=== PATIENT | female | born 1930 | race Caucasian/White ===

== ENCOUNTER 2017-05-02 00:20 | Inpatient (IN) | payer MEDICARE, BC ==
[~2017-05-02] VITALS: Ht 172.7 cm; Wt 69.9 kg
[~2017-05-02 00:20] MED LIST: ALENDRONATE SOD70 MG PO; ARICEPT10 MG PO; BENAZEPRIL HCL20 MG PO; CELEXA40 MG PO; COREG25 MG PO; COUMADIN4 MG PO; DIGOXIN125 MCG PO; DIGOXIN250 MCG PO; FLAGYL250 MG PO; FUROSEMIDE40 MG PO; LEVAQUIN500 MG PO; LEVOTHYROXINE50 MCG PO; MAGNESIUM OXID400 MG PO; MICRO-K10 MEQ PO; NAMENDA10 MG PO; POTASSIUM CITR10 MEQ PO; WARFARIN SODIUM3 MG PO; ZOLPIDEM TARTRAT5 MG PO
[2017-05-02] MEDS ORDERED: DILTIAZEM HCL 5 MG/ML 5 ML VIAL IV STA (00:21)
[2017-05-02] MEDS ORDERED: ACETAMINOPHEN 1000 MG/100 ML IV STA (00:49)
[2017-05-02 00:54] LABS: BILIRUBIN,URINE NEGATIVE (NEGATIVE); KETONES,URINE NEGATIVE (NEGATIVE); LEUKOCYTE ESTERASE ,URINE 2+ (NEGATIVE); NITRITE,URINE NEGATIVE (NEGATIVE); URINE UROBILINOGEN 0.2 mg/dL (0.2 - 1)
[2017-05-02 00:58] LABS: BASOPHILS # (AUTO) 0.1 (0.0-0.1); BASOPHILS % 0.7 % (0.0-1.0); EOSINOPHILS # (AUTO) 0.4 (0.0-0.4); EOSINOPHILS % 2.9 % (0.0-6.0); HEMATOCRIT 47.5 % (34.2-44.1); HEMOGLOBIN 15.7 g/dL (12.0-16.0); LYMPHOCYTES # (AUTO) 2.9 (1.0-3.2); LYMPHOCYTES % 22.1 % (18.0-39.1); MEAN CORPUSCULAR HEMOGLOBIN 31.5 pg (28-32); MEAN CORPUSCULAR HGB CONC 33.1 g/dL (31-35); MEAN CORPUSCULAR VOLUME 95.4 fL (81-99); MONOCYTES # (AUTO) 1.3 (0.2-0.8); MONOCYTES % 10.1 % (4.4-11.3); NEUTROPHILS # (AUTO) 8.4 (2.1-6.9); NEUTROPHILS % 63.7 % (38.7-80.0); PLATELET COUNT 214 x10e3/uL (140-360); RED BLOOD COUNT 4.98 x10e6/uL (3.6-5.1); RED CELL DISTRIBUTION WIDTH 15.5 % (11.7-14.4)
[2017-05-02 01:02] LABS: INR 2.23; PARTIAL THROMBOPLASTIN TIME 37.4 seconds (23.8-35.5); PROTHROMBIN TIME 25.9 seconds (11.9-14.5)
[2017-05-02 01:04] LABS: CLARITY,URINE SL CLOUDY (CLEAR); COLOR,URINE YELLOW (YELLOW); PROTEIN,URINE DIPSTICK 2+ (NEGATIVE)
[2017-05-02] MEDS ORDERED: VITAMIN C1000 MG PO (01:05)
[2017-05-02] MEDS ORDERED: CITALOPRAM HBR20 MG PO (01:05)
[2017-05-02] MEDS ORDERED: MAGNESIUM OXID400 MG PO (01:05)
[2017-05-02] MEDS ORDERED: LEVOTHYROXINE50 MCG PO (01:05)
[2017-05-02] MEDS ORDERED: WARFARIN SODIUM2 MG PO ×2 (01:05)
[2017-05-02] MEDS ORDERED: MULTIVITAMINS1 EAC7 PO (01:05)
[2017-05-02] MEDS ORDERED: VITAMIN D32000 UNIT PO (01:05)
[2017-05-02] MEDS ORDERED: BENAZEPRIL HCL10 MG PO (01:05)
[2017-05-02 01:06] LABS: BACTERIA,URINE FEW /HPF; EPITHELIAL CELLS,URINE FEW /LPF; RBC,URINE 0-5 /HPF (0-5)
--- NOTE | 2017-05-02 01:07 | Diagnostic Imaging Report ---
EXAM: CHEST SINGLE (PORTABLE), AP 1 view DATE: 05/02/2017 12:21 AM Time stamp on exam: 0049 hours INDICATION: Shortness of breath, A. fib COMPARISON: PA and lateral view of the chest April 22, 2016 FINDINGS: LINES/TUBES: None LUNGS: Stable interstitial thickening. PLEURA: No effusions or pneumothorax. HEART AND MEDIASTINUM: Stable enlargement of the cardiac silhouette and central pulmonary arteries. BONES AND SOFT TISSUES: No acute findings. IMPRESSION: Stable appearance of the chest. Signed by: Dr. Viola Bailey M.D. on 05/02/2017 1:03 AM
[2017-05-02 01:11] LABS: ALANINE AMINOTRANSFERASE 19 IU/L (0-55); ALBUMIN 3.6 g/dL (3.5-5.0); ALBUMIN/GLOBULIN RATIO 0.9 (0.8-2.0); ALKALINE PHOSPHATASE 67 IU/L (40-150); ANION GAP 14.3 mmol/L (8-16); BLOOD UREA NITROGEN 23 mg/dL (7-26); BUN/CREATININE RATIO 28 (6-25); CALCIUM 9.2 mg/dL (8.4-10.2); CARBON DIOXIDE 28 mmol/L (22-29); CHLORIDE 103 mmol/L (98-107); CREATINE KINASE 42 IU/L (29-168); CREATININE, SERUM 0.83 mg/dL (0.57-1.11); EST GLOMERULAR FILTRATION RATE > 60 ML/MIN (60-); GLUCOSE 140 mg/dL (74-118); POTASSIUM 4.3 mmol/L (3.5-5.1); SODIUM 141 mmol/L (136-145)
[2017-05-02 01:23] LABS: B-TYPE NATRIURETIC PEPTIDE2 243.9 pg/mL (0-100)
[2017-05-02 01:31] LABS: THYROID STIMULATING HORMONE 15.587 uIU/mL (0.350-4.940); TROPONIN I 0.028 ng/mL (0-0.300)
[2017-05-02] MEDS ORDERED: IPRATROPIUM BROMIDE 0.02% 2.5 ML NEB NEB ONE (01:45)
[2017-05-02] MEDS ORDERED: DIGOXIN INJ 0.25 MG/ML 2 ML AMP IV ONE (01:45)
[2017-05-02] MEDS ORDERED: LEVALBUTEROL HCL SOLN NEBU 0.63 MG/3 ML NEB INH ONE (01:45)
[2017-05-02] MEDS: CEFTRIAXONE SOD 1 GM VIAL IV SCH ×2 (02:20→14:30)
[2017-05-02] MEDS: DOXYCYCLINE 100MG/NS 100ML 100 ML IV SCH ×2 (05:19→16:55)
[2017-05-02] MEDS: METHYLPREDNISOLONE SOD SUCC 125 MG/2ML VIAL IV SCH ×3 (06:25→22:00)
[2017-05-02 07:06] LABS: CREATINE KINASE MB 2.4 ng/mL (0.00-5.00); TROPONIN I 0.023 ng/mL (0-0.300)
[2017-05-02 08:00] VITALS: BP 166/106
[2017-05-02] MEDS ORDERED: NORCO 7.5-3251 EACH PO (10:28)
[2017-05-02 12:00] VITALS: BP 190/93
[2017-05-02] MEDS ORDERED: HYDROCODONE/APAP 7.5MG-325MG 1 EA TAB PO PRN (12:45)
[2017-05-02] MEDS: BENAZEPRIL HCL 10 MG TAB PO SCH (14:30)
[2017-05-02] MEDS: LEVALBUTEROL HCL SOLN NEBU 0.63 MG/3 ML NEB INH PRN (15:59)
[2017-05-02 16:00] VITALS: BP 197/111
[2017-05-02] MEDS: IPRATROPIUM BROMIDE 0.02% 2.5 ML NEB NEB PRN (16:00)
[2017-05-02] MEDS: MEMANTINE 10 MG TAB PO SCH (16:56)
[2017-05-02] MEDS: POTASSIUM CITRATE 10 MEQ TAB PO SCH (16:57)
[2017-05-02] MEDS ORDERED: WARFARIN SOD 3 MG TAB PO SCH (17:00)
[2017-05-02 17:07] LABS: CREATINE KINASE MB 3.2 ng/mL (0.00-5.00); TROPONIN I 0.019 ng/mL (0-0.300)
[2017-05-02] MEDS: CARVEDILOL 12.5 MG TAB PO SCH (17:55)
[2017-05-02 20:00] VITALS: BP 167/80
[2017-05-02] MEDS: ZOLPIDEM TARTRATE 5 MG TAB PO SCH (21:04)
[2017-05-02] MEDS: DONEPEZIL HCL 5 MG TAB PO SCH (21:05)
[2017-05-03] VITALS (23 sets, daily range): BP systolic 91–197; BP diastolic 50–111
[2017-05-03] MEDS: CEFTRIAXONE SOD 1 GM VIAL IV SCH ×2 (02:00→14:44)
[2017-05-03] MEDS: LEVALBUTEROL HCL SOLN NEBU 0.63 MG/3 ML NEB INH PRN (04:00)
[2017-05-03] MEDS: IPRATROPIUM BROMIDE 0.02% 2.5 ML NEB NEB PRN (04:00)
[2017-05-03] MEDS: DOXYCYCLINE 100MG/NS 100ML 100 ML IV SCH (04:42)
[2017-05-03] MEDS: METHYLPREDNISOLONE SOD SUCC 125 MG/2ML VIAL IV SCH ×3 (07:00→22:11)
[2017-05-03] MEDS: LEVOTHYROXINE SODIUM 88 MCG TAB PO SCH (07:00)
[2017-05-03 07:33] LABS: BASOPHILS % 0.1 % (0.0-1.0); HEMATOCRIT 46.6 % (34.2-44.1); LYMPHOCYTES # (AUTO) 0.8 (1.0-3.2); LYMPHOCYTES % 7.7 % (18.0-39.1); MEAN CORPUSCULAR HGB CONC 32.2 g/dL (31-35); MEAN CORPUSCULAR VOLUME 96.3 fL (81-99); MONOCYTES # (AUTO) 0.8 (0.2-0.8); MONOCYTES % 7.2 % (4.4-11.3); NEUTROPHILS # (AUTO) 8.8 (2.1-6.9); NEUTROPHILS % 84.4 % (38.7-80.0); PLATELET COUNT 185 x10e3/uL (140-360); RED BLOOD COUNT 4.84 x10e6/uL (3.6-5.1); RED CELL DISTRIBUTION WIDTH 14.9 % (11.7-14.4)
[2017-05-03 08:57] LABS: ANION GAP 15.3 mmol/L (8-16); BLOOD UREA NITROGEN 19 mg/dL (7-26); BUN/CREATININE RATIO 26 (6-25); CALCIUM 9.2 mg/dL (8.4-10.2); CARBON DIOXIDE 31 mmol/L (22-29); CHLORIDE 102 mmol/L (98-107); CREATININE, SERUM 0.72 mg/dL (0.57-1.11); EST GLOMERULAR FILTRATION RATE > 60 ML/MIN (60-); GLUCOSE 134 mg/dL (74-118); POTASSIUM 4.3 mmol/L (3.5-5.1); SODIUM 144 mmol/L (136-145)
[2017-05-03] MEDS ORDERED: WARFARIN SOD 2 MG TAB PO SCH ×2 (09:00→17:00)
[2017-05-03] MEDS: CARVEDILOL 12.5 MG TAB PO SCH ×2 (09:55→16:30)
[2017-05-03] MEDS: DIGOXIN 0.125 MG TAB PO SCH (09:55)
[2017-05-03] MEDS: CITALOPRAM HYDROBROMIDE 20 MG TAB PO SCH (09:55)
[2017-05-03] MEDS: FUROSEMIDE 40 MG TAB PO SCH (09:55)
[2017-05-03] MEDS: MAGNESIUM OXIDE 400 MG TAB PO SCH (09:56)
[2017-05-03] MEDS: NICOTINE 7 MG PATCH TOP SCH (09:56)
[2017-05-03] MEDS: MEMANTINE 10 MG TAB PO SCH ×2 (09:56→17:00)
[2017-05-03] MEDS: BENAZEPRIL HCL 10 MG TAB PO SCH (09:56)
[2017-05-03] MEDS: POTASSIUM CITRATE 10 MEQ TAB PO SCH ×2 (09:56→17:00)
[2017-05-03] MEDS: ASCORBIC ACID 500 MG TAB PO SCH (09:56)
[2017-05-03] MEDS: MULTIVITAMINS/MINERALS TAB PO SCH (09:56)
[2017-05-03] MEDS ORDERED: ETOMIDATE 40 MG/ 20ML VIAL IV ONE (11:21)
[2017-05-03] MEDS ORDERED: SUCCINYLCHOLINE CHLORIDE 20 MG/ML 10ML VIAL ONE (11:21)
[2017-05-03] MEDS: AZITHROMYCIN 500MG/NS 250 ML 250 ML IV SCH (16:30)
[2017-05-03 16:40] LABS: ABG HCO3 39 mmol/L (23-28); ABG PCO2 80 mmHg (41-51); ABG PO2 127 mmHg (80-105)
--- NOTE | 2017-05-03 17:06 | Consultation ---
DATE OF CONSULTATION: May 02, 2017 REASON FOR CONSULTATION: Atrial fibrillation. HISTORY OF PRESENT ILLNESS: Ms. Huff is an 86-year-old lady with past medical history of hypertension, hypercholesterolemia, chronic atrial fibrillation on anticoagulation therapy, dementia, major depressive disorder who is a very poor historian and lives with her son who helps care for her. The patient has also stigmata of end-stage COPD and reports still actively smoking, just under a pack per daily for over 60 years, probably close to 120-150 pack year smoking history. She utilizes home nebs whenever she gets in trouble, which is fairly frequently. She is a frequent flyer with multiple hospitalizations with respiratory distress throughout this entire [facility] corridor. She came in because she at home was unable to catch her breath and had taken some home nebs, which did not relieve her symptoms. Upon arrival in the emergency room, she was noted to be toxic and in moderate respiratory distress, with noteworthy EKG showing atrial fibrillation with rapid ventricular response which responded to 10 mg of intravenous diltiazem therapy. I spoke to the patient today and she is not clear why she is still here. She says that she feels more or less back to her baseline. In terms of her irregular heart beating, she cannot provide much history towards that, outside of that she has been told she has had irregularities in her heart beating, but denies any subjective palpitations, dizziness, syncope or near syncope. Currently, denies any chest pain or discomfort. She just reports shortness of breath that is occurring all the time. PAST MEDICAL HISTORY: 1. Hypertension. 2. Atrial fibrillation, chronic. 3. Hypothyroidism. 4. Dementia. 5. Major depressive disorder. 6. Questionable history of CHF. 7. 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 8. Tobacco dependence. PAST SURGICAL HISTORY: Reports only appendectomy in her youth. FAMILY HISTORY: Mother and father around the 70s to 80s range. Denies them having any issues with their hearts and denies any family history of coronary artery disease. SOCIAL HISTORY: She is just under a [id number]-rpx smoker currently, but again endorses about 120 lyts-ekkp-rsecvrh history if not more. Denies any alcohol or illicit drug use. ALLERGIES: NO KNOWN DRUG ALLERGIES. HOME MEDICATIONS: According to the chart review, she takes vitamin C tablet daily, Benazepril 10 mg daily. Coreg 12.5 mg b.i.d. Digoxin 0.125 mg daily. Vitamin D tablet daily. Citalopram 20 mg daily. Aricept 10 mg daily. Lasix 40 mg daily. Clarkia p.r.n. Synthroid 75 mcg daily. Namenda 10 mg b.i.d. Multivitamins one tablet daily. Coumadin 4 mg alternating with 6 mg every other day. Ambien p.r.n. Potassium 10 mEq daily. REVIEW OF SYSTEMS: GENERAL: Denies any fevers, chills or any weight changes. HEENT: No visual complaints, sore throat, stuffy nose. RESPIRATORY: Severe exertional dyspnea with minimal activity and dyspnea at rest, which is chronic for her as chronic nonproductive cough, sometimes productive of white sputum. CARDIOVASCULAR: Denies any chest pain. Denies any subjective palpitations despite atrial fibrillation and denies any syncope, near syncope or dizziness. GI: Denies any abdominal pain, has early satiety. No orthopnea, no bright red blood per rectum, melena or hematemesis. : Denies any dysuria or changes in urinary frequency, despite having elevated white count in urine. SKIN: No breakdowns. NEUROLOGIC: No syncope, history of TIA or stroke or focal weakness. Remainder of the review of systems is negative otherwise mentioned. PHYSICAL EXAMINATION VITAL SIGNS: Height of 68 inches, weight of 160 pounds, BMI 24.4, temperature 97.4, pulse of 82, respiratory rate 24, O2 sat 96% on 3 liters nasal cannula. Blood pressure 166/106. GENERAL: This is a very chronically ill-appearing lady who appears older than her stated age who appears to have chronic respiratory failure. HEENT: Pupils are equal, round and reactive to light. Extraocular movements are intact. Oropharynx is clear. NECK: No elevation of jugular venous pulsation or bilateral carotid bruits. CARDIOVASCULAR: Irregularly irregular rate and rhythm. Normal S1 and S2, soft 2/6 systolic murmur in the left lower sternal border. LUNGS: Show very poor air flow throughout the lung villarreal. Scattered wheezes and crackles and rhonchi. ABDOMEN: Soft and nontender, nondistended with normoactive bowel sounds. BACK: No costovertebral angle tenderness. EXTREMITIES: Warm with 1+ femoral pulses, absent pedal pulses. Trace edema. NEUROLOGIC: She moves all 4 extremities, elevated with poor effort and is difficult to ascertain. She has a tremor and exhibits memory difficulty. LABORATORY DATA: White count 13.2, hemoglobin 15.7, hematocrit 47.5, platelets 214,000. Sodium 141, potassium 4.3, chloride 103, bicarb 28, BUN 23, creatinine 0.83, glucose 140, calcium 9.2, AST 31, ALT 19, alkaline phosphatase 67, total protein 7.4, albumin of 3.6, TSH 15.6, BNP 244, troponin went from 0.028 to 0.023. INR 2.23. Urinalysis shows 11-20 white cells. Digoxin level is 0.85. Chest x-ray reveals enlargement of the cardiac silhouette and central pulmonary arteries and interstitial thickening. EKG reveals atrial fibrillation with rapid ventricular response, delayed R to S wave transition and nonspecific ST-T wave changes. DIAGNOSES 1. Wcwha-uk-vvckuxy hypoxic respiratory failure. 2. Likely chronic obstructive pulmonary disease exacerbation. 3. Hypothyroidism, uncontrolled. 4. Atrial fibrillation with rapid ventricular response, likely exacerbated secondary to pulmonary issues. 5. Cognitive impairment. 6. Hypertension. 7. Chronic obstructive pulmonary disease, active smoker. PLAN/RECOMMENDATIONS: 1. From a cardiovascular standpoint, will continue her home antihypertensive therapy. 2. Will continue her digoxin therapy and beta eden therapy for rate control. 3. Coumadin therapy for systemic anticoagulation. 4. Dosing increase of her Synthroid has been done by primary team. 5. Antibiotic therapy to help cover for infection in her lungs. 6. Overall, the patient is chronically ill. 7. Will look at her echo to look at her left ventricular function. 8. The patient definitely has likely coronary artery disease given her age and risk factors. However, at the present time she is ruled out for myocardial infarction with serial enzymes. Job#: [id number]
[2017-05-03] MEDS ORDERED: PROPOFOL IV EMULSION 10MG/ML 100 ML ONE (17:15)
[2017-05-03] MEDS ORDERED: DILTIAZEM HCL 100 ML IV SCH (17:45)
[2017-05-03] MEDS: FENTANYL CITRATE INJ 2,000 MCG in SODIUM CHLORIDE 0.9% 250ML 210 ML IV SCH (17:45)
[2017-05-03] MEDS ORDERED: SODIUM CHLORIDE 0.9% 250ML 500 ML ONE (17:59)
[2017-05-03] MEDS ORDERED: LORAZEPAM INJ 2 MG/ML VIAL IV SCH (19:00)
[2017-05-03] MEDS: LORAZEPAM INJ 2 MG/ML VIAL IV PRN (19:30)
--- NOTE | 2017-05-03 19:47 | Diagnostic Imaging Report ---
CHEST SINGLE (PORTABLE), 05/03/2017 5:38 PM Technique: CHEST SINGLE (PORTABLE) Comparison: 05/02/2017 Clinical history: ET tube placement Findings: See Impression Impression: 1. Lines/Tubes: ET tube about 4 cm above the maria esther. 2. Otherwise stable chest with mildly enlarged cardiac silhouette and interstitial thickening, possibly edema. Signed by: Dr Dinora Schaffer MD on 05/03/2017 7:44 PM
[2017-05-03] MEDS: ZOLPIDEM TARTRATE 5 MG TAB PO SCH (20:40)
[2017-05-03] MEDS: DONEPEZIL HCL 5 MG TAB PO SCH (20:40)
[2017-05-03 22:45] LABS: ABG HCO3 37 mmol/L (23-28); ABG PCO2 61 mmHg (41-51); ABG PO2 146 mmHg (80-105)
[2017-05-04] VITALS (39 sets, daily range): BP systolic 94–156; BP diastolic 51–118
[2017-05-04] MEDS: LORAZEPAM INJ 2 MG/ML VIAL IV PRN ×2 (00:50→05:35)
[2017-05-04] MEDS: CEFTRIAXONE SOD 1 GM VIAL IV SCH ×2 (02:15→14:00)
[2017-05-04] MEDS: METHYLPREDNISOLONE SOD SUCC 125 MG/2ML VIAL IV SCH (05:34)
[2017-05-04] MEDS: LEVOTHYROXINE SODIUM 88 MCG TAB PO SCH (05:35)
[2017-05-04 06:51] LABS: BASOPHILS % 0.1 % (0.0-1.0); HEMATOCRIT 45.6 % (34.2-44.1); HEMOGLOBIN 14.6 g/dL (12.0-16.0); LYMPHOCYTES # (AUTO) 0.9 (1.0-3.2); LYMPHOCYTES % 9.5 % (18.0-39.1); MEAN CORPUSCULAR HEMOGLOBIN 30.9 pg (28-32); MEAN CORPUSCULAR VOLUME 96.6 fL (81-99); MONOCYTES # (AUTO) 0.5 (0.2-0.8); MONOCYTES % 5.6 % (4.4-11.3); NEUTROPHILS # (AUTO) 8.2 (2.1-6.9); NEUTROPHILS % 84.4 % (38.7-80.0); PLATELET COUNT 170 x10e3/uL (140-360); RED BLOOD COUNT 4.72 x10e6/uL (3.6-5.1)
[2017-05-04] MEDS: FENTANYL CITRATE INJ 2,000 MCG in SODIUM CHLORIDE 0.9% 250ML 210 ML IV SCH (06:53)
[2017-05-04 07:14] LABS: INR 3.28; PROTHROMBIN TIME 35.2 seconds (11.9-14.5)
--- NOTE | 2017-05-04 07:20 | Consultation ---
DATE OF CONSULTATION: June 03, 2017 PULMONARY/CRITICAL CARE CONSULTATION HISTORY OF PRESENT ILLNESS: The patient is an 86-year-old woman. She has a known history of COPD, as well as cardiac problems. She required hospitalization last April for rapid atrial fibrillation, congestive heart failure and urosepsis. She subsequently required a stay at the [facility]. The patient now returns to the ER complaining of worsening dyspnea. She was noted to have a fast heart rate with rapid atrial fibrillation. She received some digoxin intravenously, as well as diltiazem. She still complains of uneasiness and tachycardia. She also reports congestion in her chest, as well as a nonproductive cough. She does not report any fevers. PAST SURGICAL HISTORY 1. Status post appendectomy. 2. Status post cataract surgery. PAST MEDICAL HISTORY 1. Atrial fibrillation and systolic congestive heart failure. 2. COPD. 3. Hypertension. SOCIAL HISTORY: The patient is not an active smoker. She is not a drinker. She lives in [place]. Dr. Devante Welch is her regular physician. FAMILY HISTORY: Noncontributory. REVIEW OF SYSTEMS: The patient is afebrile. The patient has tachycardia. She complains of some chest congestion and difficulty breathing. She reports palpitations. She does not complain of chest pain. She did not complain of nausea or vomiting. She has no abdominal pain. She does note some leg edema. She does not complain of any focal neurological complaints. PHYSICAL EXAMINATION VITAL SIGNS: The patient is afebrile. Her heart rate is 150-160. Her blood pressure is fluctuating about 130-140/80. She is saturating 98% on 3 L. HEENT: Shows no facial swelling or erythema. Nasal mucosa is normal. The oropharynx is normal. LYMPHATIC: Shows no submandibular, cervical or supraclavicular adenopathy. NECK: Shows no JVD or thyromegaly. CARDIAC: Reveals a rapid irregularly irregular rhythm. LUNGS: There is rhonchi and congestion bilaterally in both lung villarreal. ABDOMEN: Soft and nontender. There is no rebound or guarding. EXTREMITIES: Shows 1-2+ leg edema bilaterally. There is no calf tenderness. There is no cyanosis or clubbing. SKIN: Shows no rashes. NEUROLOGIC: Shows no focal abnormalities. LABORATORY DATA: The BUN to creatinine ratio is normal. The other electrolytes are within normal limits. The BNP is 243. TSH is 15.59. The white blood cell count is 10.4 and hemoglobin is 15. Platelet count is 185,000. RADIOGRAPHIC DATA: Chest x-ray shows cardiomegaly, but no active disease. EKG from the ER shows rapid atrial fibrillation. IMPRESSION 1. Atrial fibrillation with rapid ventricular response. 2. Agqyv-kn-zwgtwge systolic congestive heart failure. 3. Chronic obstructive pulmonary disease with acute exacerbation. 4. Hypothyroidism. PLAN 1. The patient will have a stat EKG now. We will discuss the case with cardiology to see what measures can be done to control her rapid ventricular rate. 2. Patient will require some diuretics. 3. Continue Solu-Medrol. 4. Continue long-acting anticholinergic medicines, such as Spiriva. Any acute nebulizers should be done with Xopenex to avoid any further tachycardia. 5. Sputum for Gram stain and C and S along with antibiotics for community-acquired infection. 6. Solute Medrol 1 mg per kg twice daily. Discussed the case with Dr. Man. Depending on the recommendations from cardiology, may require transfer to the ICU. I also discussed the case with the patient. Dr. Agusto Gao will assume care tomorrow. Job#: [id number] KEO
[2017-05-04 07:24] LABS: ALANINE AMINOTRANSFERASE 43 IU/L (0-55); ALBUMIN 3.1 g/dL (3.5-5.0); ALKALINE PHOSPHATASE 52 IU/L (40-150); ANION GAP 11.5 mmol/L (8-16); BLOOD UREA NITROGEN 29 mg/dL (7-26); BUN/CREATININE RATIO 36 (6-25); CARBON DIOXIDE 34 mmol/L (22-29); CHLORIDE 103 mmol/L (98-107); EST GLOMERULAR FILTRATION RATE > 60 ML/MIN (60-); GLUCOSE 115 mg/dL (74-118); POTASSIUM 4.5 mmol/L (3.5-5.1); SODIUM 144 mmol/L (136-145)
[2017-05-04] MEDS: BENAZEPRIL HCL 10 MG TAB PO SCH (09:00)
[2017-05-04] MEDS: POTASSIUM CITRATE 10 MEQ TAB PO SCH ×2 (09:00→17:00)
[2017-05-04] MEDS: CARVEDILOL 12.5 MG TAB PO SCH ×2 (09:42→19:38)
[2017-05-04] MEDS: CITALOPRAM HYDROBROMIDE 20 MG TAB PO SCH (09:43)
[2017-05-04] MEDS: FUROSEMIDE 40 MG TAB PO SCH (09:43)
[2017-05-04] MEDS: DIGOXIN 0.125 MG TAB PO SCH (09:43)
[2017-05-04] MEDS: MULTIVITAMINS/MINERALS TAB PO SCH (09:44)
[2017-05-04] MEDS: ASCORBIC ACID 500 MG TAB PO SCH (09:44)
[2017-05-04] MEDS: MAGNESIUM OXIDE 400 MG TAB PO SCH (09:44)
[2017-05-04] MEDS: MEMANTINE 10 MG TAB PO SCH ×2 (09:44→19:38)
[2017-05-04] MEDS: NICOTINE 7 MG PATCH TOP SCH (09:44)
[2017-05-04] MEDS: CHOLECALCIFEROL 1,000 UNIT TAB PO SCH (09:44)
--- NOTE | 2017-05-04 10:41 | Diagnostic Imaging Report ---
PROCEDURE: A single AP view of the chest. COMPARISON: Portable chest 05/03/2017. INDICATIONS: CHF, VENTILATION FINDINGS: Lines/tubes: Endotracheal catheter is present with the tip projecting over the expected region of the trachea, positioned 5 cm from the maria esther. Enteric feeding catheter with tip projecting over the expected region of the gastric body. Lungs: The lungs are well inflated and clear. There is no evidence of pneumonia or pulmonary edema. Bibasilar atelectasis. Pleura: There is no pleural effusion or pneumothorax. Heart and mediastinum: The heart and the mediastinum are unremarkable. Atherosclerotic calcifications. Bones: No acute bony abnormality. Degenerative changes of the thoracic spine. IMPRESSION: No acute radiographic abnormality. Dictated by: Angel Wagoner M.D. on 05/04/2017 at 10:49 Electronically approved by: Angel Wagoner M.D. on 05/04/2017 at 10:49
[2017-05-04] MEDS ORDERED: PROPOFOL IV EMULSION 10MG/ML 100 ML IV PRN (15:15)
--- NOTE | 2017-05-04 15:54 | Progress Note ---
DATE: May 04, 2017 PULMONARY CRITICAL CARE PROGRESS NOTE SUBJECTIVE: Ms. Huff was seen and examined at bedside. She continues to have ventilator dependence. She is intubated orally. Ventilation at 7 L per minute. Silva is in place with some urine output. On fentanyl drip at 75 mcg per hour. Good news is her chest x-ray remained clear today. Blood cultures no growth to date times 48 hours. REVIEW OF SYSTEMS: Cannot get as she is intubated. OBJECTIVE VITALS: Afebrile. Vital signs noted per electronic record. GENERAL: No acute distress. Alert and calm. HEENT: Normocephalic and atraumatic. NECK: Supple. Throat midline. LUNGS: Bilateral air entry. There is wheezes that are heard. There is a few crackles. CARDIOVASCULAR: S1 and S2. No murmurs, rubs or gallops. ABDOMEN: Soft and nontender. EXTREMITIES: No clubbing. No cyanosis. There is only trace edema. INTEGUMENT: No rash or purpura. LABS: Potassium 4.5, bicarbonate 34, BUN 29, creatinine 0.8. White count 10, hematocrit 46. INR was 3.28. IMPRESSION AND PLAN 1. Acute respiratory failure, intubated. 2. Atrial fibrillation with rapid rate. 3. Chronic obstructive pulmonary disease with exacerbation. 4. Baseline weakness. 5. Mild warfarin excess. Continue current treatment. Patient will remain at this time on ventilator. Will try to wean her medications and try to see if she can come off the ventilator today. Will follow along closely. Continue bronchodilators. Patient will have some weaning of the steroids. Will follow along with the wheezing and other clinical exam. Repeat x-ray tomorrow. If the patient can be extubated, will start tube feeds. Will consider changing to propofol or something more short-acting than the fentanyl. Will follow along closely. Cardiology issues are important to keep controlled. Will follow along and continue cardiac medicines as indicated per them. Job#: [id number] KEO
[2017-05-04] MEDS: AZITHROMYCIN 500MG/NS 250 ML 250 ML IV SCH (19:38)
[2017-05-04] MEDS: IPRATROPIUM BROMIDE 0.02% 2.5 ML NEB NEB PRN (20:35)
[2017-05-04] MEDS: LEVALBUTEROL HCL SOLN NEBU 0.63 MG/3 ML NEB INH PRN (20:35)
[2017-05-04] MEDS: ZOLPIDEM TARTRATE 5 MG TAB PO SCH (21:00)
[2017-05-04] MEDS: DONEPEZIL HCL 5 MG TAB PO SCH (21:00)
--- NOTE | 2017-05-04 22:25 | Progress Note ---
DATE: May 04, 2017 PULMONARY MEDICINE FOLLOWUP PROGRESS NOTE SUBJECTIVE: Ms. Huff was given take her off sedation. It is now the evening and she is reasonably mobile. She is following commands. Patient is moving all 4 extremities. She did get a weaning trial, where she was able to respond with reasonable numbers. RSBI 60. She has a cuff leak. Mild elevation heart rate 100-120 beats per minute. Patient deemed reasonable; so, will go ahead and proceed for extubation trial parameter is seen to continue to improve. At this time, will extubate her under direct supervision. Greater than 30 minutes of direct care today. Job#: [id number]
[2017-05-05] VITALS (42 sets, daily range): BP systolic 90–165; BP diastolic 62–119
[2017-05-05] MEDS: IPRATROPIUM BROMIDE 0.02% 2.5 ML NEB NEB PRN ×3 (00:05→15:17)
[2017-05-05] MEDS: LEVALBUTEROL HCL SOLN NEBU 0.63 MG/3 ML NEB INH PRN ×3 (00:05→15:17)
[2017-05-05] MEDS: LORAZEPAM INJ 2 MG/ML VIAL IV PRN (01:27)
[2017-05-05] MEDS: CEFTRIAXONE SOD 1 GM VIAL IV SCH (03:25)
[2017-05-05] MEDS: LEVOTHYROXINE SODIUM 88 MCG TAB PO SCH (04:55)
[2017-05-05] MEDS: CARVEDILOL 12.5 MG TAB PO SCH ×2 (08:52→16:31)
[2017-05-05] MEDS: FUROSEMIDE 40 MG TAB PO SCH (08:53)
[2017-05-05] MEDS: MEMANTINE 10 MG TAB PO SCH ×2 (08:53→16:31)
[2017-05-05] MEDS: CITALOPRAM HYDROBROMIDE 20 MG TAB PO SCH (08:53)
[2017-05-05] MEDS: ASCORBIC ACID 500 MG TAB PO SCH (08:53)
[2017-05-05] MEDS: PREDNISONE 20 MG TAB PO SCH (08:53)
[2017-05-05] MEDS: BENAZEPRIL HCL 10 MG TAB PO SCH (08:53)
[2017-05-05] MEDS: DIGOXIN 0.125 MG TAB PO SCH (08:53)
[2017-05-05] MEDS: MULTIVITAMINS/MINERALS TAB PO SCH (08:53)
[2017-05-05] MEDS: POTASSIUM CITRATE 10 MEQ TAB PO SCH ×2 (08:53→16:31)
[2017-05-05] MEDS: MAGNESIUM OXIDE 400 MG TAB PO SCH (08:54)
[2017-05-05] MEDS: CHOLECALCIFEROL 1,000 UNIT TAB PO SCH (08:54)
[2017-05-05] MEDS: NICOTINE 7 MG PATCH TOP SCH (08:54)
[2017-05-05] MEDS ORDERED: METOPROLOL TARTRATE INJ 1 MG/ML VIAL IV PRN ×2 (09:15)
[2017-05-05] MEDS ORDERED: FUROSEMIDE INJ 10 MG/ML 4 ML VIAL IV NR (09:30)
[2017-05-05] MEDS: MEROPENEM 500 MG VIAL IV SCH ×2 (12:49→20:45)
[2017-05-05] MEDS ORDERED: MEROPENEM 500MG 500 MG in SODIUM CHLORIDE 0.9% 50ML 50 ML IV SCH (14:00)
[2017-05-05] MEDS: ZOLPIDEM TARTRATE 5 MG TAB PO SCH (20:46)
[2017-05-05] MEDS: DONEPEZIL HCL 5 MG TAB PO SCH (20:46)
[2017-05-06] VITALS (12 sets, daily range): BP systolic 109–160; BP diastolic 62–112
--- NOTE | 2017-05-06 01:09 | Progress Note ---
DATE: May 05, 2017 PULMONARY MEDICINE PROGRESS NOTE SUBJECTIVE: Mrs. Huff was seen and examined at bedside. She continues to have slow progress. She was extubated successfully last night. However, today she still remains very weak. She was reported to have more shortness of breath yesterday with appearance of choking. Patient with 99% oxygen saturation on 40% Venturi mask at this time. Heart rate is still high in the 100s and 120s at times. Blood cultures still no growth today, and urine culture remains positive. REVIEW OF SYSTEMS: No bleeding. No rash. OBJECTIVE VITALS: Afebrile. Vital signs noted per electronic record. GENERAL: No acute distress. Alert and oriented times about 2 and not definitely oriented times 3. HEENT: Normocephalic and atraumatic. NECK: Supple. Throat midline. LUNGS: Bilateral air entry. Few rhonchi. CARDIOVASCULAR: S1 and S2. No murmurs, rubs or gallops. ABDOMEN: Soft and nontender. EXTREMITIES: No clubbing. No cyanosis. There is no edema. INTEGUMENT: No rash or purpura. LABS: BUN 29, creatinine 0.8. White count 9.6, hematocrit 47 and platelets 170,000. IMPRESSION AND PLAN 1. Acute respiratory failure, extubated. 2. Morganella urinary tract infection, multidrug-resistant. 3. Severe weakness. 4. Chronic obstructive pulmonary disease with exacerbation. 5. Clinical dehydration. 6. History of atrial fibrillation, not totally controlled yet. Continue close management. Control the heart rate. Continue IV antibiotics for possible pneumonia, as well as UTI. Continue to mobilize the patient. For now, we will await speech therapy evaluation as we do not have a low risk patient, and we believe she is at risk of choking. Will continue to follow up closely. Greater than 30 minutes in direct care today. Multiple reassessments. Job#: [id number] KEO
[2017-05-06] MEDS: MEROPENEM 500 MG VIAL IV SCH ×3 (04:23→23:10)
[2017-05-06] MEDS: LEVOTHYROXINE SODIUM 88 MCG TAB PO SCH (05:10)
[2017-05-06 06:01] LABS: BASOPHILS % 0.1 % (0.0-1.0); EOSINOPHILS # (AUTO) 0.1 (0.0-0.4); EOSINOPHILS % 0.8 % (0.0-6.0); HEMATOCRIT 50.4 % (34.2-44.1); HEMOGLOBIN 16.2 g/dL (12.0-16.0); LYMPHOCYTES % 18.7 % (18.0-39.1); MEAN CORPUSCULAR HEMOGLOBIN 30.6 pg (28-32); MEAN CORPUSCULAR HGB CONC 32.1 g/dL (31-35); MEAN CORPUSCULAR VOLUME 95.1 fL (81-99); MONOCYTES % 9.3 % (4.4-11.3); NEUTROPHILS # (AUTO) 7.4 (2.1-6.9); NEUTROPHILS % 70.6 % (38.7-80.0); PLATELET COUNT 169 x10e3/uL (140-360); RED CELL DISTRIBUTION WIDTH 14.5 % (11.7-14.4)
--- NOTE | 2017-05-06 06:06 | Diagnostic Imaging Report ---
CHEST SINGLE (PORTABLE), 05/06/2017 5:00 AM Technique: CHEST SINGLE (PORTABLE) Comparison: 05/03/2017 Clinical history: Atelectasis Findings: See Impression Impression: 1. Lines/Tubes: Removal of ET tube 2. New left basilar opacity, favor atelectasis/mucus plugging. Attention on follow up. 3. Stable enlarged cardiomediastinal silhouette and interstitial thickening. Signed by: Dr Dinora Schaffer MD on 05/06/2017 6:02 AM
[2017-05-06 06:14] LABS: INR 2.82; PROTHROMBIN TIME 31.2 seconds (11.9-14.5)
[2017-05-06 06:29] LABS: ALANINE AMINOTRANSFERASE 36 IU/L (0-55); ALBUMIN 3.1 g/dL (3.5-5.0); ALBUMIN/GLOBULIN RATIO 0.9 (0.8-2.0); ALKALINE PHOSPHATASE 52 IU/L (40-150); ANION GAP 13.8 mmol/L (8-16); BLOOD UREA NITROGEN 32 mg/dL (7-26); BUN/CREATININE RATIO 45 (6-25); CALCIUM 9.2 mg/dL (8.4-10.2); CARBON DIOXIDE 35 mmol/L (22-29); CHLORIDE 98 mmol/L (98-107); CREATININE, SERUM 0.71 mg/dL (0.57-1.11); EST GLOMERULAR FILTRATION RATE > 60 ML/MIN (60-); GLUCOSE 81 mg/dL (74-118); POTASSIUM 3.8 mmol/L (3.5-5.1); SODIUM 143 mmol/L (136-145)
[2017-05-06] MEDS: LEVALBUTEROL HCL SOLN NEBU 0.63 MG/3 ML NEB INH PRN (07:24)
[2017-05-06] MEDS: IPRATROPIUM BROMIDE 0.02% 2.5 ML NEB NEB PRN (07:24)
[2017-05-06] MEDS: CITALOPRAM HYDROBROMIDE 20 MG TAB PO SCH (08:30)
[2017-05-06] MEDS: CARVEDILOL 12.5 MG TAB PO SCH ×2 (08:30→17:07)
[2017-05-06] MEDS: FUROSEMIDE 40 MG TAB PO SCH (08:30)
[2017-05-06] MEDS: DIGOXIN 0.125 MG TAB PO SCH (08:30)
[2017-05-06] MEDS: MAGNESIUM OXIDE 400 MG TAB PO SCH (08:31)
[2017-05-06] MEDS: ASCORBIC ACID 500 MG TAB PO SCH (08:31)
[2017-05-06] MEDS: PREDNISONE 20 MG TAB PO SCH (08:31)
[2017-05-06] MEDS: MULTIVITAMINS/MINERALS TAB PO SCH (08:31)
[2017-05-06] MEDS: MEMANTINE 10 MG TAB PO SCH ×2 (08:31→17:07)
[2017-05-06] MEDS: NICOTINE 7 MG PATCH TOP SCH (08:31)
[2017-05-06] MEDS: CHOLECALCIFEROL 1,000 UNIT TAB PO SCH (08:31)
[2017-05-06] MEDS: BENAZEPRIL HCL 10 MG TAB PO SCH (09:00)
[2017-05-06] MEDS: POTASSIUM CITRATE 10 MEQ TAB PO SCH ×2 (09:00→17:10)
[2017-05-06] MEDS ORDERED: SODIUM CHLORIDE 0.9% 50ML 50 ML ONE (12:02)
[2017-05-06] MEDS ORDERED: AZITHROMYCIN 500MG/NS 250 ML 250 ML IV SCH (17:00)
[2017-05-06] MEDS ORDERED: MIRTAZAPINE 15 MG TAB PO SCH (21:00)
[2017-05-06] MEDS: DONEPEZIL HCL 5 MG TAB PO SCH (22:35)
--- NOTE | 2017-05-06 22:56 | Progress Note ---
DATE: May 06, 2017 PULMONARY MEDICINE PROGRESS NOTE SUBJECTIVE: Ms. Huff was seen and examined at bedside. She continues to have a lot of weakness. She is alert and oriented x2. She eats about 50% of her meals. No bowel movement yet today. Silva is in place and there is no significant skin issue cited by nursing. REVIEW OF SYSTEMS: Cannot get reliably as she is altered. OBJECTIVE: VITAL SIGNS: Afebrile, vital signs noted per electronic record. GENERAL: In no acute distress, alert and calm. HEENT: Normocephalic, atraumatic. NECK: Supple. Throat midline. LUNGS: Bilateral air entry, few rhonchi. CARDIOVASCULAR: S1, S2. No murmurs, rubs, or gallops. ABDOMEN: Soft, nontender. EXTREMITIES: No clubbing, no cyanosis, there is no edema. INTEGUMENT: No rash, no purpura. LABS: 3.8 potassium, 32 BUN, 0.7 creatinine. 11 white count, 50 hematocrit, 169,000 platelets. IMPRESSION AND PLAN: 1. Chronic obstructive pulmonary disease with exacerbation. 2. Dysphagia, tolerating diet so far on first day that is modified. 3. Admitted with severe urinary tract infection. 4. Acute respiratory failure, resolving. 5. Hypoxemia, improving. 6. Encephalopathy, multifactorial. Continue serial neurologic examinations. Physical therapy consult to help mobilize the patient. Mirtazapine has been added to try to augment appetite and augment sleep. Prednisone will be continued to be weaned. Follow up the INR. She is on warfarin at this time. Will follow along closely on bronchodilators and antibiotics. Job#: [id number]
[2017-05-07] VITALS: BP 171/103
[2017-05-07 04:00] VITALS: BP 146/67
[2017-05-07] MEDS: LEVOTHYROXINE SODIUM 88 MCG TAB PO SCH (05:32)
[2017-05-07] MEDS: MEROPENEM 500 MG VIAL IV SCH ×2 (05:42→12:37)
[2017-05-07 06:25] LABS: BASOPHILS % 0.2 % (0.0-1.0); EOSINOPHILS # (AUTO) 0.2 (0.0-0.4); EOSINOPHILS % 1.8 % (0.0-6.0); HEMATOCRIT 47.8 % (34.2-44.1); HEMOGLOBIN 15.5 g/dL (12.0-16.0); LYMPHOCYTES # (AUTO) 2.2 (1.0-3.2); LYMPHOCYTES % 23.6 % (18.0-39.1); MEAN CORPUSCULAR HEMOGLOBIN 30.7 pg (28-32); MEAN CORPUSCULAR HGB CONC 32.4 g/dL (31-35); MEAN CORPUSCULAR VOLUME 94.7 fL (81-99); MONOCYTES # (AUTO) 0.7 (0.2-0.8); MONOCYTES % 7.8 % (4.4-11.3); NEUTROPHILS # (AUTO) 6.2 (2.1-6.9); PLATELET COUNT 190 x10e3/uL (140-360); RED BLOOD COUNT 5.05 x10e6/uL (3.6-5.1); RED CELL DISTRIBUTION WIDTH 14.3 % (11.7-14.4)
[2017-05-07 06:46] LABS: ALANINE AMINOTRANSFERASE 30 IU/L (0-55); ALBUMIN 2.9 g/dL (3.5-5.0); ALKALINE PHOSPHATASE 49 IU/L (40-150); ANION GAP 10.5 mmol/L (8-16); BLOOD UREA NITROGEN 25 mg/dL (7-26); BUN/CREATININE RATIO 34 (6-25); CHLORIDE 96 mmol/L (98-107); CREATININE, SERUM 0.74 mg/dL (0.57-1.11); EST GLOMERULAR FILTRATION RATE > 60 ML/MIN (60-); GLUCOSE 84 mg/dL (74-118); INR 1.94; MAGNESIUM 2.2 MG/DL (1.3-2.1); POTASSIUM 3.5 mmol/L (3.5-5.1); PROTHROMBIN TIME 23.2 seconds (11.9-14.5); SODIUM 144 mmol/L (136-145)
[2017-05-07 06:51] LABS: DIGOXIN 0.63 ng/mL (0.8-2.0)
[2017-05-07 07:04] LABS: CARBON DIOXIDE 41 mmol/L (22-29)
[2017-05-07 09:00] VITALS: BP 136/96
[2017-05-07] MEDS ORDERED: PREDNISONE 20 MG TAB PO SCH (09:00)
[2017-05-07] MEDS: CITALOPRAM HYDROBROMIDE 20 MG TAB PO SCH (09:56)
[2017-05-07] MEDS: BENAZEPRIL HCL 10 MG TAB PO SCH (09:56)
[2017-05-07] MEDS: MEMANTINE 10 MG TAB PO SCH (09:56)
[2017-05-07] MEDS: FUROSEMIDE 40 MG TAB PO SCH (09:56)
[2017-05-07] MEDS: MULTIVITAMINS/MINERALS TAB PO SCH (09:56)
[2017-05-07] MEDS: MAGNESIUM OXIDE 400 MG TAB PO SCH (09:57)
[2017-05-07] MEDS: CHOLECALCIFEROL 1,000 UNIT TAB PO SCH (09:57)
[2017-05-07] MEDS: NICOTINE 7 MG PATCH TOP SCH (09:57)
[2017-05-07] MEDS: CARVEDILOL 12.5 MG TAB PO SCH (09:57)
[2017-05-07] MEDS: POTASSIUM CITRATE 10 MEQ TAB PO SCH (09:57)
[2017-05-07] MEDS: ASCORBIC ACID 500 MG TAB PO SCH (09:57)
[2017-05-07] MEDS: LEVALBUTEROL HCL SOLN NEBU 0.63 MG/3 ML NEB INH PRN (10:02)
[2017-05-07] MEDS: IPRATROPIUM BROMIDE 0.02% 2.5 ML NEB NEB PRN (10:02)
[2017-05-07 12:49] VITALS: BP 120/61
[2017-05-07 16:37] VITALS: BP 135/63
[2017-05-07] MEDS ORDERED: WARFARIN SOD 3 MG TAB PO SCH (17:00)
--- NOTE | 2017-05-08 04:14 | Progress Note ---
DATE: May 07, 2017 PULMONARY MEDICINE PROGRESS NOTE SUBJECTIVE: Mrs. Huff was seen and examined at bedside. Chest x-ray showing increasing atelectasis noted. Oxygen saturation 97% on 2 L per minute oxygen with 0.7 L in and 3.3 L out recorded. Full voids. Two liters per minute by nasal cannula was being tolerated, and she is spontaneously breathing, but weak. She is eating. REVIEW OF SYSTEMS: No headaches. No rash. OBJECTIVE VITALS: Afebrile. Vital signs noted per electronic record. GENERAL: In no acute distress. Alert and calm in bed. Today, she is alert and oriented times 3 for the first time. HEENT: Normocephalic and atraumatic. NECK: Supple. Throat midline. LUNGS: Bilateral air entry. Decreased breath sounds at the base. CARDIOVASCULAR: S1 and S2. No murmurs, rubs or gallops. ABDOMEN: Soft and nontender. EXTREMITIES: No clubbing. No cyanosis. There is trace to 1+ edema. INTEGUMENT: No rash. No purpura. LABS: Potassium 3.5, BUN 25, creatinine 0.7. White count 9.4, hematocrit 48. INR 1.94. IMPRESSION AND PLAN 1. Urinary tract infection, Morganella. 2. Acute respiratory failure, resolving. 3. Possible fluid overload. 4. Pneumonitis, increasing atelectasis. 5. Dysphagia, suspected, cannot rule out aspiration. Continue serial exams. Repeat x-ray tomorrow. If the patient cannot cough, then she needs to be n.p.o. Will follow along closely. Give a trial of Diamox diuretics. Will follow along closely. Job#: [id number] KEO
== END 2017-05-07 16:39 | DRG 208 ==
LOC: ER 00:20 → ERHOLD 06:00 → MED/SURG3 07:35 → ICU 05-03 17:02 → MED/SURG2 05-06 12:37
PROC: 0BH17EZ Insertion of Endotracheal Airway into Trachea, Via Natural or Artificial Opening (ICD-10-PCS; principal; 2017-05-03)
PROC: 5A1945Z Respiratory Ventilation, 24-96 Consecutive Hours (ICD-10-PCS; 2017-05-03)
DX: J44.1 Chronic obstructive pulmonary disease with (acute) exacerbation (principal); J96.21 Acute and chronic respiratory failure with hypoxia; J69.0 Pneumonitis due to inhalation of food and vomit; A41.9 Sepsis, unspecified organism; I50.23 Acute on chronic systolic (congestive) heart failure; G93.40 Encephalopathy, unspecified; J96.22 Acute and chronic respiratory failure with hypercapnia; N39.0 Urinary tract infection, site not specified; I11.0 Hypertensive heart disease with heart failure; B96.89 Other specified bacterial agents as the cause of diseases classified elsewhere; Z16.24 Resistance to multiple antibiotics; E86.0 Dehydration; I48.0 Paroxysmal atrial fibrillation; R13.10 Dysphagia, unspecified; E03.9 Hypothyroidism, unspecified; F03.90 Unspecified dementia, unspecified severity, without behavioral disturbance, psychotic disturbance, mood disturbance, and anxiety; F32.9 Major depressive disorder, single episode, unspecified; F17.200 Nicotine dependence, unspecified, uncomplicated; I25.10 Atherosclerotic heart disease of native coronary artery without angina pectoris; Z79.01 Long term (current) use of anticoagulants
CPT/HCPCS: 36415; 36600; 71010; 80048; 80053; 80162; 81001; 82550; 82553; 82805; 82948; 83605; 83735; 83880; 84100; 84443; 84484; 85025; 85610; 85730; 87040; 87086; 87186; 87400; 93005; 93306; 94002; 94003; 96374; 96375; 99284; J0330; J0456; J0696; J1940; J2060; J2185; J2930; J7050

== ENCOUNTER 2017-06-06 22:19 | Inpatient (IN) | payer MEDICARE, BC ==
[~2017-06-06] VITALS: Ht 172.7 cm; Wt 69.9 kg
[~2017-06-06 22:19] MED LIST changes: +BENAZEPRIL HCL10 MG PO; +CITALOPRAM HBR20 MG PO; +MULTIVITAMINS1 EAC7 PO; +NORCO 7.5-3251 EACH PO; +VITAMIN C1000 MG PO; +VITAMIN D32000 UNIT PO; +WARFARIN SODIUM2 MG PO
[2017-06-06 22:37] LABS: BASOPHILS % 0.3 % (0.0-1.0); EOSINOPHILS # (AUTO) 0.3 (0.0-0.4); EOSINOPHILS % 1.8 % (0.0-6.0); HEMATOCRIT 39.1 % (34.2-44.1); HEMOGLOBIN 11.8 g/dL (12.0-16.0); LYMPHOCYTES # (AUTO) 5.3 (1.0-3.2); LYMPHOCYTES % 33.5 % (18.0-39.1); MEAN CORPUSCULAR HEMOGLOBIN 31.1 pg (28-32); MEAN CORPUSCULAR HGB CONC 30.2 g/dL (31-35); MEAN CORPUSCULAR VOLUME 102.9 fL (81-99); MONOCYTES # (AUTO) 0.6 (0.2-0.8); NEUTROPHILS # (AUTO) 8.1 (2.1-6.9); NEUTROPHILS % 51.3 % (38.7-80.0); PLATELET COUNT 231 x10e3/uL (140-360); RED CELL DISTRIBUTION WIDTH 14.4 % (11.7-14.4)
[2017-06-06] MEDS ORDERED: SODIUM CHLORIDE 0.9% 1000ML 1,000 ML ONE ×2 (22:41→22:54)
[2017-06-06] MEDS ORDERED: NOREPINEPHRINE BITARTRATE/ NS 250 ML ONE (22:47)
[2017-06-06] MEDS: NOREPINEPHRINE BITARTRATE/ NS 250 ML IV SCH (22:50)
[2017-06-06 22:54] LABS: ALBUMIN 2.2 g/dL (3.5-5.0); ALBUMIN/GLOBULIN RATIO 0.7 (0.8-2.0); ANION GAP 28.3 mmol/L (8-16); CALCIUM 8.3 mg/dL (8.4-10.2); CREATININE, SERUM 0.91 mg/dL (0.57-1.11); POTASSIUM 5.3 mmol/L (3.5-5.1)
[2017-06-06 23:00] LABS: CREATINE KINASE MB 1.4 ng/mL (0.00-5.00)
[2017-06-06 23:15] LABS: ABG PH 7.21 (7.31-7.41)
[2017-06-06 23:18] LABS: BAND NEUTROPHILS % (MANUAL) 1 %; LYMPHOCYTES % (MANUAL) 39 % (19-48); MONOCYTES % (MANUAL) 4 % (3.4-9.0); NEUTROPHILS % (MANUAL) 56 % (40-74); NUCLEATED RED BLOOD CELLS 3
[2017-06-06] MEDS ORDERED: VASOPRESSIN 100 UNIT in DEXTROSE 5% 100ML 100 ML IV STA (23:18)
[2017-06-06 23:19] LABS: PLATELET ESTIMATE ADEQUATE; PLATELET MORPHOLOGY COMMENT NORMAL; RBC MORPHOLOGY COMMENT NORMAL
[2017-06-06] MEDS ORDERED: VASOPRESSIN INJ 20 UNIT/ML VIAL ONE (23:22)
[2017-06-06] MEDS ORDERED: DEXTROSE 5% 100ML 100 ML IV ONE (23:22)
[2017-06-06] MEDS ORDERED: VANCOMYCIN 1GM/NS 250 ML 250 ML IV STA (23:24)
[2017-06-06] MEDS ORDERED: MEROPENEM 1GRAM 1 GM in SODIUM CHLORIDE 0.9% 100 ML 100 ML IV STA (23:25)
--- NOTE | 2017-06-06 23:45 | Diagnostic Imaging Report ---
CHEST SINGLE (PORTABLE), 06/06/2017 10:29 PM Technique: CHEST SINGLE (PORTABLE) Comparison: 05/06/2017 Clinical history: Findings: See Impression Impression: 1. Lines/Tubes: ET tube 3.6 cm above the maria esther. Right central venous catheter tip overlies the lower SVC. 2. Stable enlarged cardiomediastinal silhouette. 3. Diffuse opacities, likely edema. 4. Small left pleural effusion with left basilar atelectasis or consolidation. Signed by: Dr Dinora Schaffer MD on 06/06/2017 11:41 PM
[2017-06-07 00:27] LABS: INR 1.73; PROTHROMBIN TIME 21.2 seconds (11.9-14.5)
[2017-06-07] MEDS ORDERED: MEROPENEM 1 GM VIAL ONE (00:27)
[2017-06-07] MEDS: CEFEPIME HCL 2 GM VIAL IV SCH ×2 (00:29→13:01)
[2017-06-07] MEDS ORDERED: SODIUM CHLORIDE 0.9% 1000ML 1,000 ML IV SCH ×3 (00:30→01:30)
[2017-06-07 00:45] LABS: B-TYPE NATRIURETIC PEPTIDE2 465.3 pg/mL (0-100)
[2017-06-07 00:48] LABS: MAGNESIUM 1.8 MG/DL (1.3-2.1)
[2017-06-07 01:18] LABS: BILIRUBIN,URINE NEGATIVE (NEGATIVE); CLARITY,URINE CLOUDY (CLEAR); COLOR,URINE YELLOW (YELLOW); KETONES,URINE NEGATIVE (NEGATIVE); LEUKOCYTE ESTERASE ,URINE NEGATIVE (NEGATIVE); NITRITE,URINE NEGATIVE (NEGATIVE); PROTEIN,URINE DIPSTICK 3+ (NEGATIVE); URINE UROBILINOGEN 0.2 mg/dL (0.2 - 1)
[2017-06-07 01:37] LABS: WBC,URINE (MAN) 21-50 /HPF (0-5)
[2017-06-07 01:38] LABS: BACTERIA,URINE MANY /HPF; EPITHELIAL CELLS,URINE FEW /LPF; RBC,URINE 21-50 /HPF (0-5); TRANSITIONAL EPI CELLS,URINE FEW
[2017-06-07] MEDS: SODIUM CHLORIDE 0.9% 1000ML 1,000 ML IV SCH ×2 (02:00→13:02)
[2017-06-07] MEDS ORDERED: ONDANSETRON HCL INJ 2 MG/ML VIAL IV PRN (02:00)
[2017-06-07] MEDS: NOREPINEPHRINE BITARTRATE/ NS 250 ML IV SCH (03:50)
[2017-06-07 03:56] LABS: OCCULT BLOOD STOOL POSITIVE (NEGATIVE)
--- NOTE | 2017-06-07 04:09 | Diagnostic Imaging Report ---
Examination: CT BRAIN WITHOUT CONTRAST History:Cardiac arrest. Comparison studies:Head CT performed December 08, 2012 Technique: Axial images were obtained from the skull base to the vertex. Coronal and sagittal images reconstructed from the axial data. Intravenous contrast: None Findings: Scalp: No abnormalities. Bones: No fractures, blastic or lytic lesions. Brain sulci: Appropriate for age. Ventricles: Normal in size and configuration. No hydrocephalus. Extra-axial space: No abnormalities. Parenchyma: There is complete loss of odell-white differentiation, consistent with anoxic brain injury. No masses, hemorrhage, or chronic cortical based vascular insults. Sellar/suprasellar region: No abnormalities. Craniocervical junction: Patent foramen magnum. No Chiari one malformation. Incidental findings: None. Impression: Findings as described above are consistent with anoxic brain injury, which is new when compared to prior head CT from December 08, 2012. Signed by: Dr. Sary Parham M.D. on 06/07/2017 4:05 AM
[2017-06-07] MEDS ORDERED: MEROPENEM 1GRAM 1 GM in SODIUM CHLORIDE 0.9% 100 ML 100 ML IV SCH ×2 (06:00→08:00)
[2017-06-07 07:06] LABS: ALBUMIN 2.3 g/dL (3.5-5.0); ALBUMIN/GLOBULIN RATIO 0.8 (0.8-2.0); ANION GAP 14.1 mmol/L (8-16); CREATININE, SERUM 1.17 mg/dL (0.57-1.11); POTASSIUM 4.1 mmol/L (3.5-5.1)
[2017-06-07 07:33] LABS: BASOPHILS # (AUTO) 0.2 (0.0-0.1); BASOPHILS % 0.6 % (0.0-1.0); EOSINOPHILS # (AUTO) 0.1 (0.0-0.4); EOSINOPHILS % 0.2 % (0.0-6.0); HEMATOCRIT 43.2 % (34.2-44.1); HEMOGLOBIN 13.8 g/dL (12.0-16.0); LYMPHOCYTES # (AUTO) 1.8 (1.0-3.2); LYMPHOCYTES % 5.9 % (18.0-39.1); MEAN CORPUSCULAR HEMOGLOBIN 31.4 pg (28-32); MEAN CORPUSCULAR HGB CONC 31.9 g/dL (31-35); MEAN CORPUSCULAR VOLUME 98.4 fL (81-99); MONOCYTES # (AUTO) 0.7 (0.2-0.8); MONOCYTES % 2.4 % (4.4-11.3); NEUTROPHILS # (AUTO) 26.9 (2.1-6.9); NEUTROPHILS % 88.1 % (38.7-80.0); PLATELET COUNT 229 x10e3/uL (140-360); RED BLOOD COUNT 4.39 x10e6/uL (3.6-5.1); RED CELL DISTRIBUTION WIDTH 14.8 % (11.7-14.4)
[2017-06-07 07:56] LABS: CREATINE KINASE MB 19.5 ng/mL (0.00-5.00)
[2017-06-07] MEDS ORDERED: DIGOXIN INJ 0.25 MG/ML 2 ML AMP IV ONE (08:00)
[2017-06-07] MEDS ORDERED: FAMOTIDINE 20 MG/2 ML VIAL IV STA (10:25)
[2017-06-07] MEDS ORDERED: AMIODARONE HCL 150 MG/100 ML BAG IV ONE (10:30)
[2017-06-07] MEDS ORDERED: METOPROLOL TARTRATE INJ 1 MG/ML VIAL IV ONE (10:45)
[2017-06-07 10:47] LABS: ABG PH 7.39 (7.31-7.41)
[2017-06-07] MEDS ORDERED: MEROPENEM 1 GM VIAL IV SCH (11:00)
[2017-06-07] MEDS ORDERED: AMIODARONE HCL 100 ML IV NR (11:00)
[2017-06-07] MEDS ORDERED: AMIODARONE HCL 900 MG in DEXTROSE 5 % 500ML BOTTLE 482 ML IV SCH (11:00)
--- NOTE | 2017-06-07 11:50 | Consultation ---
DATE OF CONSULTATION: June 07, 2017 PULMONARY/CRITICAL CARE CONSULT REFERRING PHYSICIAN: Dr. Man. REASON FOR REFERRAL: Respiratory failure. HISTORY: Ms. Huff is a pleasant 86-year-old female with respiratory arrest. Patient was in the usual state of health at [facility] where it was found that she had cardiopulmonary arrest. Patient had prolonged CPR done over there. Patient; however, is without good record that we have access to at this time regarding that incident. Patient was brought into [facility] Emergency Room. After 10 minutes, there was return of spontaneous circulation. Patient was also seen in atrial fibrillation, was given some medicines including digoxin to try to control this. She is currently intubated in the emergency room, Levophed 25 mcg per minute, vasopressin ongoing. There was tachycardia 120 to 140s, irregular rate and rhythm. PAST MEDICAL HISTORY: Appendectomy, cataract surgery, atrial fibrillation, systolic CHF, COPD, hypertension. MEDICATIONS: Medication list reviewed from the electronic record. ALLERGIES: NO KNOWN DRUG ALLERGIES. SOCIAL HISTORY: Currently in [facility]. No smoking active. No drinking. She lives in [place]. FAMILY HISTORY: Noncontributory to this. REVIEW OF SYSTEMS: Cannot get as she is intubated. OBJECTIVE GENERAL: Patient unstable, on life support. NEUROLOGIC: Very limited at this time. LUNGS: Bilateral air entry, few rhonchi. ABDOMEN: Not clearly obtainable, once again limited. EXTREMITIES: 1 to 2+ edema. INTEGUMENT: Intact to what I see. LABS: Albumin 2.3. Ph 10.21/64/338. Troponin 2.6. INR 1.73. White count 30. Creatinine 1.2. IMPRESSIONS AND PLAN 1. Acute respiratory failure, intubated. 2. Status post cardiopulmonary arrest. 3. Clinical dehydration with sodium 167. 4. Shock. 5. Possible acute kidney injury, in evolution. 6. Coagulopathy, patient possibly on anticoagulants before versus disseminated intravascular coagulation. 7. Increasing liver enzymes, possible acute liver failure, in evolution. Followup CT head results. Continue intubated. Maintain ventilator status. Give some amiodarone and amiodarone drip. Consult ID and cardiology. Repeat labs. Repeat blood gas analysis to ensure stability. Greater than 30 minutes of direct care today. Multiple interventions done. We will follow along closely. Job#: [id number] VAS
--- NOTE | 2017-06-07 13:03 | Consultation ---
DATE OF CONSULTATION: CARDIOLOGY CONSULTATION DATE OF : 1930 REASON FOR CONSULTATION: Roa-qx-qcsvikrg arrest. HISTORY OF PRESENT ILLNESS: Ms. Huff is an 86-year-old lady with past medical history of hypertension, hypercholesterolemia, chronic atrial fibrillation on anticoagulation therapy, dementia, and major depressive disorder, who is a poor historian at baseline. Patient was found down in her residence and was started on CPR. According to nursing staff, patient had CPR for about an hour at her residence facility without any breathing ventilation. She came into this institution where she had another 1 hour of ACLS measures until the return of spontaneous circulation. Patient is currently in critical condition on 2 pressors nearly max-out, Levophed 25 mcg/kg/minute as well as vasopressin at 0.04. Her initial rhythm was noted to be asystole and patient is currently in atrial fibrillation with rapid ventricular response, heart rate in the 150s. She does not show any signs of pupil, corneal, or gag reflexes. CT scan also reveals anoxic brain injury. In this setting, she came in with a lactate level of 86 and troponin went from baseline of 0.032 up to 2.561. Again, current EKG shows atrial fibrillation with a rapid ventricular response with nonspecific ST-T wave changes and right bundle branch block. We were unable to corroborate any history at the present time due to her clinical status. PAST MEDICAL HISTORY 1. Hypertension. 2. Chronic atrial fibrillation. 3. Hypothyroidism. 4. Dementia. 5. Major depressive disorder. 6. End-stage COPD. 7. Tobacco dependence, who is active up until this hospitalization. 8. Questionable history of CHF, most likely diastolic. PAST SURGICAL HISTORY: History of appendectomy in her youth. FAMILY HISTORY: Mother and father in their 70s to 80s without any history of coronary artery disease. SOCIAL HISTORY: She is currently 9-nziv-omh-day smoker, has greater than 120 to 728-jedh-nowy-smoking history. Denies any alcohol or illicit drug use. ALLERGIES: NO KNOWN DRUG ALLERGIES. HOME MEDICATIONS: Include; 1. Benazepril. 2. Coreg. 3. Digoxin. 4. Vitamin D. 5. Citalopram. 6. Aricept. 7. Lasix. 8. Kittrell p.r.n. 9. Synthroid. 10. Namenda. 11. Coumadin. 12. Multivitamin. 13. Potassium supplement. REVIEW OF SYSTEMS: Unable to be obtained secondary to medical condition. PHYSICAL EXAMINATION VITAL SIGNS: Height of 68 inches, weight of 154 pounds, BMI is 23.4, pulse of 157, respiratory rate 18, temperature of 95.8, O2 sat 97% on the vent. GENERAL: This is an bswlh-wf-xbuqnzccigr ill lady, who is intubated, who appears well older than stated age. HEENT: Pupils are fixed, no corneal reflex, unresponsive to light. NECK: There is no elevation of jugular venous pulsation. There are bilateral carotid bruits. CARDIOVASCULAR: Irregularly irregular rate and rhythm, tachycardic. Normal S1 and S2. Soft 2/6 systolic murmur in the left upper sternal border. LUNGS: Show poor air flow throughout lung villarreal. Some crackles and rhonchi in the left lung base. ABDOMEN: Soft and nontender with absent bowel sounds. No hepatosplenomegaly. BACK: No costovertebral angle tenderness. EXTREMITIES: Warm with absent pedal pulses. Trace edema. NEUROLOGIC: She is unresponsive. No spontaneous breathing. No gag, fixed pupils likely related to perhaps anoxic brain injury. LABORATORY DATA: White count 30.6, hemoglobin 13.8, hematocrit 43.2, platelets of 229. Sodium 145, potassium 4.1, chloride 109, bicarb 26, BUN 19, creatinine of 1.17, glucose 187, AST 496, ALT 129, alkaline phosphatase 85, total protein 5.2, albumin of 2.3, lactate was 86.3. Troponin went from a baseline of 0.032 to 2.561. ABG shows pH of 7.21, pCO2 of 64, pO2 of 338. INR is 1.73. UA shows 21-50 white cells. Digoxin level was less than 0.3. Fecal occult blood test is negative. Chest x-ray shows left basilar infiltrates. Brain CT shows anoxic brain injury pattern. EKG reveals atrial fibrillation, right bundle branch block, nonspecific ST-T wave changes. DIAGNOSES 1. Prolonged cardiopulmonary resuscitation with over 2 hours of cardiopulmonary resuscitation given, 1 hour in the field and 1 hour here in this institution, which in my opinion was very heroic. 2. Prior history of repeated hypoxic respiratory failure in the setting of end-stage chronic obstructive pulmonary disease, suspect underlying mechanism of arrest was likely due to a pulmonary cause in light of her advanced lung debility and condition. 3. Atrial fibrillation with rapid ventricular response, exacerbated secondary to medical condition. 4. Demand non-ST segment elevation myocardial infarction secondary to prolonged cardiopulmonary resuscitation, hypoxia, etc. 5. Anoxic brain injury with poor prognostic features. 6. Distributive shock nearly max-out on 2 pressors. 7. Acute liver injury. 8. Severe lactic acidosis. 9. Underlying chronic obstructive pulmonary disease, active smoker. PLAN/RECOMMENDATIONS 1. Overall from a cardiovascular standpoint, patient has very poor prognosis. She has evidence of advanced brain injury pattern on imaging as well clinically. In light of this, cardiac treatment will be largely conservative. 2. In terms of her rhythm issues, we can intermittently dose chace blocking agents and rhythm control strategy is unlikely to be successful. 3. We will try to amiodarone in light of acute liver injury. 4. Patient's condition is likely terminal. We will recommend discussion of goals of care with family. We will continue to follow this patient with you. Thank you for this referral. Job#: [id number] JOEL
[2017-06-07 13:49] LABS: C DIFFICILE TOXIN A&B AMP PROB NEGATIVE (NEGATIVE); WBC,FECAL (FECAL LACTOFERRIN) NEGATIVE (NEGATIVE)
[2017-06-07] MEDS ORDERED: ENOXAPARIN 30 MG/0.3 ML SYR SC SCH (17:00)
[2017-06-08 06:29] LABS: ANISOCYTOSIS MODERATE; BAND NEUTROPHILS % (MANUAL) 3 %; LYMPHOCYTES % (MANUAL) 6 % (19-48); METAMYELOCYTES % (MANUAL) 1 % (0-0); MONOCYTES % (MANUAL) 3 % (3.4-9.0); NEUTROPHILS % (MANUAL) 87 % (40-74); NUCLEATED RED BLOOD CELLS 5; PLATELET ESTIMATE ADEQUATE; PLATELET MORPHOLOGY COMMENT NORMAL; RBC MORPHOLOGY COMMENT NORMAL
--- OUTSIDE RECORDS SUMMARY | 2017-06-09 17:52 | XMS REPORT ---
Author [facility] Address Unknown Phone Unavailable Care Team Providers Care Fibre Technologist Name Role Phone OSCAR BAILEY Unavailable Unavailable Problems This patient has no known problems. Allergies, Adverse Reactions, Alerts This patient has no known allergies or adverse reactions. Medications This patient has no known medications. Results Test Description Test Time Test Comments Text Results Atomic Results Result Comments CT BRAIN WO [place] [address] Patient Name: INA KRUGER MR #: [id number] : 1930 Age/Sex: 86/F Req #: [id number] Adm Physician: OSCAR BAILEY MD Ordered by: CATARINA DIAZ MD Report #: [id number] Location: [facility] Room/Bed: [place] [address] _ Procedure: [id number] CT/CT BRAIN WO Exam Date: 06/07/17 Exam Time: 0243 REPORT STATUS: Signed Examination: CT BRAIN WITHOUT CONTRAST History:Cardiac arrest. Comparison studies:Head CT performed December 08, 2012 Technique: Axial images were obtained from the skull base to the vertex. Coronal and sagittal images reconstructed from the axial data. Intravenous contrast: None Findings: Scalp: No abnormalities. Bones: No fractures, blastic or lytic lesions. Brain sulci : Appropriate for age. Ventricles: Normal in size and configuration. No hydrocephalus. Extra-axial space: No abnormalities. Parenchyma: There is complete loss of odell-white differentiation, consistent with anoxic brain injury. No masses, hemorrhage, or chronic cortical based vascular insults. Sellar/suprasellar region: No abnormalities. Craniocervical junction: Patent foramen magnum. No Chiari one malformation. Incidental findings: None. Impression: Findings as described above are consistent with anoxic brain injury, which is new when compared to prior head CT from December 08, 2012. Signed by: Dr. Sary Parham M.D. on 06/07/2017 4:05 AM Dictated By: SARY OSHEA MD 4 Transcribed By: ISMAEL on 404 COPY TO: CATARINA DIAZ MD CHEST SINGLE (PORTABLE) [place] [address] Patient Name: INA KRUGER MR #: [id number] : 1930 Age/Sex: 86/F Req #: [id number] Adm Physician: Ordered by: CATARINA DIAZ MD Report #: [id number] Location: ER Room/Bed: Procedure: [id number] DX/CHEST SINGLE (PORTABLE) Exam Date: 06/06/17 Exam Time: 2310 REPORT STATUS: Signed CHEST SINGLE ( PORTABLE), 06/06/2017 10:29 PM Technique: CHEST SINGLE (PORTABLE) Comparison: 05/06/2017 Clinical history: Findings: See Impression Impression: 1. Lines/Tubes: ET tube 3.6 cm above the maria esther. Right central venous catheter tip overlies the lower SVC. 2. Stable enlarged cardiomediastinal silhouette. 3. Diffuse opacities, likely edema. 4. Small left pleural effusion with left basilar atelectasis or consolidation. Signed by: Dr Hanny Schaffer MD on 06/06/2017 11:41 PM Dictated By: HANNY SCHAFFER MD 40 Transcribed By: ISMAEL on 06/06/172340 COPY TO: CATARINA DIAZ MD CHEST SINGLE (PORTABLE) [place] [address] Patient Name: INA KRUGER MR #: [id number] : 1930 Age/Sex: 86/F Req #: [id number] Adm Physician: OSCAR BAILEY MD Ordered by: VY SON MD Report #: [id number] Location: ICU Room/Bed: [place] [address] Procedure: [id number] DX/CHEST SINGLE (PORTABLE) Exam Date: 05/06/17 Exam Time: 0450 REPORT STATUS: Signed CHEST SINGLE (PORTABLE), 05/06/2017 5:00 AM Technique: CHEST SINGLE (PORTABLE) Comparison: 05/03/2017 Clinical history: Atelectasis Findings: See Impression Impression: 1. Lines/Tubes: Removal of ET tube 2. New left basilar opacity, favor atelectasis/mucus plugging. Attention on follow up. 3. Stable enlarged cardiomediastinal silhouette and interstitial thickening. Signed by: Dr Hanny Schaffer MD on 05/06/2017 6: 02 AM Dictated By: HANNY SCHAFFER MD 1 Transcribed By: ISMAEL on 05/06/17601 COPY TO: VY SON MD CHEST SINGLE (PORTABLE) [facility] [address] [place] [address] Patient Name: INA KRUGER MR #: [id number] : 1930 Age/Sex: 86/F Req #: [id number] Adm Physician: OSCAR BAILEY MD Ordered by: VY SON MD Report #: [id number] Location: ICU Room/Bed: ICU [facility] Procedure: [id number] DX/CHEST SINGLE (PORTABLE) Exam Date: 05/04/17 Exam Time: 1000 REPORT STATUS: Signed PROCEDURE: A single AP view of the chest. COMPARISON: Portable chest 05/03/2017. INDICATIONS: CHF, VENTILATION FINDINGS: Lines/tubes: Endotracheal catheter is present with the tip projecting over the expected region of the trachea, positioned 5 cm from the maria esther. Enteric feeding catheter with tip projecting over the expected region of the gastric body. Lungs: The lungs are well inflated and clear. There is no evidence of pneumonia or pulmonary edema. Bibasilar atelectasis. Pleura: There is no pleural effusion or pneumothorax. Heart and mediastinum: The heart and the mediastinum are unremarkable. Atherosclerotic calcifications. Bones: No acute bony abnormality. Degenerative changes of the thoracic spine. IMPRESSION: No acute radiographic abnormality. Dictated by: Ava Argueta M.D. on 2016 at 10:49 Electronically approved by: Ava Argueta M.D. on 2016 at 10:49 Dictated By: AVA ARGUETA MD 1049 Transcribed By: TATUM on 05/04/17 1049 COPY TO: VY SON MD CHEST SINGLE (PORTABLE) [facility] [address] [place] [address] Patient Name: INA KRUGER MR #: [id number] : 1930 Age/Sex: 86/F Req #: [id number] Adm Physician: OSCAR BAILEY MD Ordered by: JULIETA DELGADILLO MD Report #: [id number] Location: ICU Room/Bed: ICU 194 ___ Procedure: [id number] DX/CHEST SINGLE (PORTABLE) Exam Date: 05/03/17 Exam Time: 1740 REPORT STATUS: Signed CHEST SINGLE (PORTABLE), 05/03/2017 5:38 PM Technique: CHEST SINGLE ( PORTABLE) Comparison: 05/02/2017 Clinical history: ET tube placement Findings: See Impression Impression: 1. Lines/Tubes: ET tube about 4 cm above the maria esther. 2. Otherwise stable chest with mildly enlarged cardiac silhouette and interstitial thickening, possibly edema. Signed by: Dr Hanny Schaffer MD on 05/03/2017 7:44 PM Dictated By: HANNY SCHAFFER MD 43 Transcribed By: ISMAEL on 05/03/171943 COPY TO: JULIETA DELGADILLO MD CHEST SINGLE (PORTABLE) [facility] [address] [place] [id number] Patient Name: INA KRUGER MR #: [id number] : 1930 Age/Sex: 86/F Req #: [id number] Adm Physician: Ordered by: CATARINA DIAZ MD Report #: [id number] Location: ER Room/Bed: Procedure: [id number] DX/CHEST SINGLE (PORTABLE) Exam Date: Exam Time: REPORT STATUS: Signed EXAM: CHEST SINGLE (PORTABLE ), AP 1 view DATE: 05/02/2017 12:21 AM Time stamp on exam: 0049 hours INDICATION: Shortness of breath, A. fib COMPARISON: PA and lateral view of the chest April 22, 2016 FINDINGS: LINES/TUBES: None LUNGS: Stable interstitial thickening. PLEURA: No effusions or pneumothorax. HEART AND MEDIASTINUM: Stable enlargement of the cardiac silhouette and central pulmonary arteries. BONES AND SOFT TISSUES: No acute findings. IMPRESSION: Stable appearance of the chest. Signed by: Dr. Manuel Bailey M.D. on 05/02/2017 1:03 AM Dictated By: MANUEL BAILEY MD 2 Transcribed By : ISMAEL on 05/02/17102 COPY TO: CATARINA DIAZ MD
--- NOTE | 2017-07-12 11:35 | Discharge Summary ---
SUMMARY CHIEF COMPLAINT: CPR in progress. Patient June 07, 2017. FINAL DIAGNOSES: 1. Atrial fibrillation with rapid ventricular response. 2. Bzl-QJ-hixbgnz elevation myocardial infarction. 3. Acute liver injury. An 86-year-old female with known history of hypertension, coronary artery disease, COPD, chronic congestive heart failure, dementia, and atrial fib, a resident at [facility]. At that location, patient had gone into a cardiac arrest. [facility], brought to the ER where the CPR continued, intubated, mechanical vent, vasopressors. Patient was noted to be totally unresponsive. No corneal response. Pupils were nonreactive. Chest was showing inspiratory crackles. Abdomen soft. Patient is vented at the time. In ICU now. She is status post CPR 2 hours. Evidence of anoxic encephalopathy, coronary artery disease, chronic congestive heart failure. Had discussion with the patient's son. He is currently waiting for some family members to see the loved one, then wants to withdraw life support. The patient was being reviewed by Dr. Gao regarding the intubated state and the respiratory failure as well as the current CPR; and his impression was acute respiratory failure, intubated; status post cardiopulmonary arrest; clinical dehydration with sodium 167; shock; possible acute kidney injury; coagulopathy; possible acute liver failure. Maintain vent status for now. She was then seen by Dr. Murphy, cardiac review. His impression was prolonged cardiopulmonary resuscitation with over 2 hours of CPR, 1 hour in the field, 1 hour here; prior history of repeated hypoxic respiratory failure in the setting of end-stage chronic obstructive pulmonary disease, suspecting underlying mechanism of arrest was likely due to pulmonary cause in light of her advanced lung debility and condition; atrial fib with a rapid ventricular response, exacerbated secondary to medical condition; demand kmk-LB-uuwnsyh elevation IN secondary to prolonged cardiopulmonary resuscitation, hypoxia, etc; anoxia brain injury with poor prognostic features; distributive shock, nearly maxed out on 2 pressors; acute liver injury; severe lactic acidosis. Patient has very poor prognosis, has evidence of advanced brain injury pattern on imaging as well as clinically. From a cardiac standpoint, treatment will be largely conservative. Condition is likely terminal. EKGs are showing atrial fib with a rapid ventricular response, right bundle-branch block, was being maintained in ICU. The appropriate family members arrived and were able to say their goodbyes. Heroic efforts were terminated. Following the conclusion of heroic efforts, compassionate care was entertained. Her condition continued to deteriorate, and she was pronounced at 1642 hours on June 07, 2017. Dictated By: KEN Mills Job#: [id number]
== END 2017-06-07 17:06 | disposition expired | DRG 871 ==
LOC: ER 22:19 → ERHOLD 06-07 01:54 → UNDOADMIN 06-07 02:01 → ER 06-07 17:06
PROC: 0BH17EZ Insertion of Endotracheal Airway into Trachea, Via Natural or Artificial Opening (ICD-10-PCS; principal; 2017-06-07)
PROC: 5A1935Z Respiratory Ventilation, Less than 24 Consecutive Hours (ICD-10-PCS; 2017-06-07)
PROC: 02HV33Z Insertion of Infusion Device into Superior Vena Cava, Percutaneous Approach (ICD-10-PCS; 2017-06-07)
DX: A41.9 Sepsis, unspecified organism (principal); R65.21 Severe sepsis with septic shock; J96.00 Acute respiratory failure, unspecified whether with hypoxia or hypercapnia; I46.9 Cardiac arrest, cause unspecified; I21.4 Non-ST elevation (NSTEMI) myocardial infarction; K72.00 Acute and subacute hepatic failure without coma; R57.9 Shock, unspecified; G93.1 Anoxic brain damage, not elsewhere classified; E86.0 Dehydration; I48.2 Chronic atrial fibrillation; E87.2 Acidosis; D68.9 Coagulation defect, unspecified; N17.9 Acute kidney failure, unspecified; I50.32 Chronic diastolic (congestive) heart failure; J44.1 Chronic obstructive pulmonary disease with (acute) exacerbation; Z66 Do not resuscitate; Z79.01 Long term (current) use of anticoagulants; F03.90 Unspecified dementia, unspecified severity, without behavioral disturbance, psychotic disturbance, mood disturbance, and anxiety; F32.9 Major depressive disorder, single episode, unspecified; E03.9 Hypothyroidism, unspecified; F17.210 Nicotine dependence, cigarettes, uncomplicated; I11.0 Hypertensive heart disease with heart failure
CPT/HCPCS: 31500; 36415; 36600; 70450; 71045; 80053; 80162; 81001; 82150; 82270; 82550; 82553; 82805; 83605; 83630; 83690; 83735; 83880; 84484; 85025; 85610; 85730; 86850; 86900; 87040; 87086; 87493; 93005; 96365; 96374; 99285; J0692; J1160; J2185; J3370; J7030